=== PATIENT | male | born 1940 | race Caucasian/White ===

== ENCOUNTER → 2020-01-29 | Outpatient (CLI) | payer MEDICARE, OTHER, SELFPAY ==
--- NOTE | 2020-01-29 | ASPSI_PTH ---
PATIENT: REID KC LOC: [facility] U#:[id number] AGE/SX: 79/M ROOM: RE01/29/[address]: Dr. 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 See comment. ANDREW:claire 01/31/20 COMMENT Clinical correlation and appropriate follow up are necessary. Case has been reviewed in consultation with Dr. Eduardo who concurs with the above diagnosis. IDC:AM CYTOLOGY STUDY Slides are reviewed. CYTOLOGY GROSS Received is 35 ml of turbid light red fluid labeled with the patient's name and and designated per the requisition as left parotid mass. Submitted for cytology preparation including cell block. / claire 01/30/20 TC:1 CPT: 01426, 62211
== END | disposition home or self-care (01) ==
PROVIDERS: Referring Provider Otolaryngology; Visit Provider Otolaryngology
DX: D49.0 Neoplasm of unspecified behavior of digestive system (principal)
CPT/HCPCS: 88108; 88161; 88305

== ENCOUNTER 2020-02-09 17:41 | Inpatient (IN) | payer MEDICARE, OTHER, SELFPAY ==
--- NOTE | 2020-02-05 09:25 | EKG12_ITS ---
Test Reason : PRE OP Blood Pressure : / mmHG Vent. Rate : 066 BPM Atrial Rate : 066 BPM P-R Int : 208 ms QRS Dur : 090 ms QT Int : 374 ms P-R-T Axes : 021 038 053 degrees QTc Int : 392 ms Normal sinus rhythm Normal ECG Confirmed by CHARLENE STEPHEN, YAN ([id number]), restaurant expeditor ENOCH CHOWDARY ([id number]) on 02/06/2020 9:16:37 AM Referred By: Bryan Resendiz Confirmed By:YAN CHANG MD
[2020-02-05 10:13] LABS: Anion Gap 4 (5-15); BUN 15 mg/dL (7-18); BUN/Creat Ratio 12.9 RATIO (10-20); Calcium,Total 9.3 mg/dL (8.5-10.1); Chloride 107 mmol/L (98-107); Creatinine, Serum 1.16 mg/dL (0.70-1.30); EST Glomerular Filtration Rate 64 mL/min (>60); Est Glom Filt Rate - Afr Amer 78 mL/min (>60); Glucose 102 mg/dL (74-106); Sodium Level 141 mmol/L (136-145)
[2020-02-09] VITALS (7 sets, daily range): BP systolic 145–167; BP diastolic 65–86; PULSE 62–89; RESP 16–18; TEMP 35.7–37.7; O2SAT 95–98; BMI 31.8
--- NOTE | 2020-02-09 | PAR_PTH ---
PATIENT: REID KC LOC: [facility] U#:[id number] AGE/SX: 79/M [place] [facility] [place]: Dr. Bryan Resendiz MD : 1940 BED: 1 DIS: 02/10/2020 SPEC #: [id number] RECD: 02/09/20 17:10 STATUS: PERCY ZARINA #: [id number] TAYA: 02/09/20 00:[address]: Bryan Resendiz DEPT: SURGICAL PATHOLOGY RECD BY: Sarah Turcios Tissues: Parotid gland, NOS Procedures: Frozen Section (charge) Frozen Section Add'l ([facility]) Surgery Specimen Level V HEADER OPERATION: Left parotidectomy PRE-OP DIAGNOSIS: Benign neoplasm of major salivary gland, BCC of skin TISSUE SUBMITTED: Left parotid gland sent for frozen section at 1705 FROZEN SECTION DIAGNOSIS Left parotid gland mass, parotidectomy: Consistent with pleomorphic adenoma. AM:claire 02/09/20 MICROSCOPIC DIAGNOSIS Left parotid gland, parotidectomy: Pleomorphic adenoma, completely excised. Two out of two lymph nodes with no pathologic change. AM:rg 02/13/20 COMMENT Reference is made to the patient's previous left parotid mass, fine needle aspiration from 01/31/20 ([id number]) which is consistent with pleomorphic adenoma. Case has been reviewed in consultation with Dr. Wilson who concurs with the above diagnosis. IDC:SJ MICROSCOPIC DESCRIPTION Slides are reviewed. GROSS DESCRIPTION Received fresh for frozen section consultation labeled with the patient's name is a specimen designated left parotid gland. The specimen consists of a specimen measuring 7 x 5 x 3.5 cm and weighing 32.2 gm. The external surface is pink and the specimen is serially sectioned to reveal a firm, gelatinous zamora-white lesion measuring 2.5 x 2 x 2 cm. Research Spec sections of the nodules are submitted for frozen section consultation in two blocks. The remainder of the salivary gland parenchyma is rubbery, light zamora and free of additional lesions. The remainder of the nodule is submitted for frozen section in cassettes 36, 7-10 - sales service representative sections of uninvolved salivary gland parenchyma. / AM:claire 02/12/20 TC:1 CPT: 85116, 06457, 47342
[2020-02-09] MEDS: Lactated Ringers 1,000 ML 100 ML IV ×3 (11:59→18:44)
--- NOTE | 2020-02-09 17:37 | DCINST_ITS ---
You will use the following diet at home:: No restrictions Discharge Activity: Return to Normal Activity, May not drive while taking narco tic pain medications. Call your doctor if your incision/area has: Sudden Increased Bleeding, Increased Pain/ Swelling, Foul Smelling Discharge, Swelling at the incision site Call your doctor if you observe: Fever of 101 or Higher, Uncontrolled pain Cleanse incision/area with: Do not get Incision Wet Allergies/Adverse Reactions: Allergies iodine Allergy (Verified 02/09/20 11:51) Rash shellfish derived Allergy (Verified 02/09/20 11:51) Vomiting Medications to take at Discharge Atorvastatin Calcium [Lipitor] 10 mg PO DAILY 02/01/20 Bilberry 100 mg PO DAILY 02/01/20 Fish Oil/Dha/Epa [Fish Oil 1,200 mg Fish Oil] 1 ea PO DAILY 02/01/20 Loratadine [Claritin] 10 mg PO DAILY 02/01/20 Metoprolol Succinate [Toprol Xl] 100 mg PO DAILY 02/01/20 Omeprazole [Prilosec] 20 mg PO DAILY 02/01/20 Ubidecarenone [Coq-10] 100 mg PO DAILY 02/01/20 Valsartan [Diovan] 160 mg PO QHS 02/01/20 Primary Care Physician: COURTNEY ARGUETA [Other] Test Results: Test results from this visit will be discussed in further detail at your follow- up appointment, if applicable. Please Follow Up With: Bryan Resendiz MD When: 1 week
--- NOTE | 2020-02-09 17:38 | PCM.OPRPT ---
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 Report of Operation Date of Procedure: 02/09/20 Pre-Operative Diagnosis: Pleomorphic adenoma left parotid Post-Operative Diagnosis: Same Surgery/Procedure Performed:: Left parotidectomy with facial nerve preservation, nerve monitoring Type of Anesthesia:: General Anesthesiologist: Lenka Singh Special Medications: none Specimen's removed: left parotid and tumor Drains: #7 BAO drain Estimated Blood Loss (mL): 100 mL Fluids Replaced: 1500 mL Grafts/Implants Used: none - Complications none - Admit VTE Documentation VTE Present on Admission: No VTE Mechan Device Prophylaxis: SCD's VTE Pharm Prophylaxis ordered?: No
[2020-02-09] MEDS: Losartan Potassium 50 MG Tablet PO (18:54)
[2020-02-09] MEDS: Atorvastatin Calcium 10 MG Tablet PO (21:13)
[2020-02-10 02:40] VITALS: BP 157/83; PULSE 64; RESP 18; TEMP 36.2; O2SAT 96
[2020-02-10 08:07] VITALS: BP 152/63; PULSE 80; RESP 18; TEMP 37; O2SAT 98
--- NOTE | 2020-02-10 09:05 | PN.SURG_ITS ---
Subjective: Patient reports that he is done well overnight with no significant pain complaints. He reports his facial movement is intact and he has some mild nu mbness at the incision site. He has been able to eat well and void without difficulty Objective: Is well-appearing with the neck incision intact without significant redness or discharge. The drain is in place and is reported put out a significant amount of discharge overnight. There is no fluid collection underneath the parotidectomy flap and drainage has subsided this morning. - Physical Exam Vitals/I&O's: Vital Signs Temp Pulse Resp BP Pulse Ox 98.6 F 80 18 152/63 H 98 02/10/20 08:07 02/10/20 08:07 02/10/20 08:07 02/10/20 08:07 02/10/20 08:07 Oxygen Delivery Method Room Air Weight: 100.8 kg Body Mass Index (BMI) 31.8 Intake and Output for Last 24 Hours 02/08/20 02/09/20 02/10/20 23:59 23:59 23:59 Intake Total 1423.33 / 1523.33 1600 / 1600 Output Total 1625 2390 / 2390 Balance 1413.33 / -101.67 -790 / -790 General: Alert, Oriented x3, Cooperative, No apparent distress HEENT: Atraumatic, PERRLA, - - Parotidectomy incision site on the left is clean dry and intact Oral: Moist Mucosa Neck: Supple Lungs: Normal air movement, No rhonchi Cardiovascular: Regular rate, Regular Rhythm Extremities: No clubbing, No cyanosis, No edema Neurological: Cranial nerves II-XII grossly intact Psych/Mental Status: Normal Affect, Alert and oriented to time, place, person, mood and affect Current Medications Acetaminophen (Tylenol) 500 mg PO Q4H PRN PRN PRN Reason: Pain Score 1-10/10 Atorvastatin Calcium (Lipitor) 10 mg PO QHS [facility] Last Admin: 02/09/20 21:13 Dose: 10 mg Documented by: Loratadine (Claritin) 10 mg PO DAILY [facility] Losartan Potassium (Cozaar) 50 mg PO QHS [facility] Last Admin: 02/09/20 18:54 Dose: 50 mg Documented by: Metoprolol Succinate (Toprol Xl (Beta Sina)) 100 mg PO DAILY [facility] Ondansetron HCl (Zofran) 4 mg IV Q4H PRN PRN PRN Reason: Nausea Pantoprazole Sodium (Protonix) 20 mg PO DAILY P[facility] Sodium Chloride () 10 - 40 ml IV UD PRN PRN Reason: SALINE FLUSH Medical Necessity - Tobacco Use Smoking Status: Former smoker Assessment/Plan He is doing well postoperative day #1 status post left parotidectomy for pleomorphic adenoma. The output overnight was over 60 mL however this seems to be decreasing. He desires for discharge to home and is comfortable with self drain management and we will plan for home-going today with follow-up on Wednesday for drain removal. He has been advised on postoperative wound care and signs for infection and is agreeable to alert me if he has any worrisome symptoms.
== END 2020-02-10 10:32 | disposition home or self-care (01) | DRG 139 ==
LOC: MS3 19:19 → SDC 02-12 08:17
PROVIDERS: Anesthesiology; Admitting Provider Otolaryngology; Referring Provider Otolaryngology; Visit Provider Otolaryngology
PROC: 0CT90ZZ Resection of Left Parotid Gland, Open Approach (ICD-10-PCS; CPT 42410; principal; 2020-02-09 12:25)
DX: D11.0 Benign neoplasm of parotid gland (principal); I10 Essential (primary) hypertension; E78.00 Pure hypercholesterolemia, unspecified; K21.9 Gastro-esophageal reflux disease without esophagitis; Z85.828 Personal history of other malignant neoplasm of skin; Z79.899 Other long term (current) drug therapy; Z87.891 Personal history of nicotine dependence; Z20.828 Contact with and (suspected) exposure to other viral communicable diseases
CPT/HCPCS: 36415; 80048; 87635; 88305; 88307; 88331; 88332; 93005; G2023; J7120; J2405; J3490; U0003